=== PATIENT | female | born 1995 | race Caucasian/White ===

== ENCOUNTER → 2017-03-07 | Outpatient (REF) | payer OTHER ==
[~2017-03-07] MED LIST: /MOM400 PO; ACET50TA PO; ANUS2.5C2 EXT; DOCU10ELUD PO; IBUP600T26 PO; IBUP60TA PO; PREN1TAB11 PO; PRENTAB66 PO
[2017-03-07 18:31] LABS: MEAN CORPUSCULAR HEMOGLOBIN 30.4 pg (27.0-33.0); MEAN CORPUSCULAR HGB CONC 34.4 g/dl (32.0-36.5); MEAN CORPUSCULAR VOLUME 88.4 fl (80.0-96.0); PLATELET COUNT, AUTOMATED 291 10^3/uL (150-450); RED CELL DISTRIBUTION WIDTH 12.3 % (11.5-14.5); WHITE BLOOD COUNT 7.9 10^3/uL (4.0-10.0)
[2017-03-07 18:59] LABS: HCG, SERUM QUANTITATIVE 51118 MIU/ML
[2017-03-09 11:20] LABS: HBsAg Prenatal NEGATIVE (NEGATIVE)
== END ==
LOC: M LAB REF 16:47
PROVIDERS: ATTEND Obstetrics & Gynecology
DX: O36.80X0 Pregnancy with inconclusive fetal viability, not applicable or unspecified (principal); Z3A.00 Weeks of gestation of pregnancy not specified

== ENCOUNTER → 2017-07-13 | Outpatient (CLI) | payer OTHER ==
[2017-07-13 14:48] LABS: HEMATOCRIT 34.4 % (36.0-47.0); HEMOGLOBIN 11.6 g/dl (12.0-15.5); MEAN CORPUSCULAR HEMOGLOBIN 30.6 pg (27.0-33.0); MEAN CORPUSCULAR HGB CONC 33.7 g/dl (32.0-36.5); MEAN CORPUSCULAR VOLUME 90.8 fl (80.0-96.0); PLATELET COUNT, AUTOMATED 210 10^3/uL (150-450); RED BLOOD COUNT 3.79 10^6/uL (4.00-5.40)
[2017-07-13 15:07] LABS: GLUCOSE CHALLENGE TEST 1 HOUR 116 MG/DL (LESS THAN 140)
== END ==
LOC: M LAB 13:39
DX: Z34.82 Encounter for supervision of other normal pregnancy, second trimester (principal)
CPT/HCPCS: 82950

== ENCOUNTER → 2017-07-23 | Outpatient (REF) | payer OTHER ==
[2017-07-24 09:13] LABS: AB SCREEN (INDIRECT COOMBS)VIS 1 1
== END ==
LOC: M LAB REF 17:07
DX: Z34.82 Encounter for supervision of other normal pregnancy, second trimester (principal)
CPT/HCPCS: 86901

== ENCOUNTER → 2017-09-07 | Outpatient (REF) | payer OTHER | LOC: M LAB REF 13:06 | DX: Z34.83 Encounter for supervision of other normal pregnancy, third trimester (principal); Z3A.00 Weeks of gestation of pregnancy not specified ==

== ENCOUNTER 2017-09-27 15:42 | Inpatient (IN) | payer OTHER ==
[2017-09-27] MEDS ORDERED: LR 1,000 ML IV (16:39)
[2017-09-27] MEDS: LR 1,000 ML IV ×2 (16:42→17:42)
[2017-09-27] MEDS: LACTATED RINGER'S 1000 ML IV (16:42)
[2017-09-27 17:06] LABS: HEMATOCRIT 32.9 % (36.0-47.0); HEMOGLOBIN 11.3 g/dl (12.0-15.5); MEAN CORPUSCULAR HGB CONC 34.3 g/dl (32.0-36.5); MEAN CORPUSCULAR VOLUME 87.3 fl (80.0-96.0); PLATELET COUNT, AUTOMATED 230 10^3/uL (150-450); RED BLOOD COUNT 3.77 10^6/uL (4.00-5.40); RED CELL DISTRIBUTION WIDTH 12.8 % (11.5-14.5); WHITE BLOOD COUNT 10.3 10^3/uL (4.0-10.0)
[2017-09-27] MEDS: OXYTOCIN DRIP 30 UNITS in APPROPRIATE DILUENT 1 EA IV (18:08)
[2017-09-27] MEDS ORDERED: FENTANYL 2MCG/ML ROPIVACAINE 0.2% IN 0.9% NACL 200ML IVBAG As Ordered (20:20)
[2017-09-27] MEDS ORDERED: NALOXONE INJ 0.4 MG/1 ML VIAL (J2310) IV (20:28)
[2017-09-27] MEDS ORDERED: LACTATED RINGER'S 1000 ML IV (20:28)
[2017-09-27] MEDS ORDERED: ePHEDrine SULFATE 25 MG/5 ML(5MG/ML) SYRINGE IV (20:28)
[2017-09-27] MEDS ORDERED: REFRIGERATOR IV KEYS XX (20:28)
[2017-09-27] MEDS ORDERED: diphenhydrAMINE INJ 50MG/ML VIAL (J1200) IV (20:28)
[2017-09-27] MEDS ORDERED: ONDANSETRON 4MG/2ML VIAL (J2405) IV (20:28)
[2017-09-27] MEDS: FENTANYL/ROPIVACAINE/NACL BAG 200 ML EPIDURAL (20:28)
[2017-09-27] MEDS ORDERED: EPIDURAL/PCA KEYS XX (20:28)
[2017-09-27] MEDS ORDERED: EPIDURAL COMMENT XX (20:28)
[2017-09-27] MEDS: ACETAMINOPHEN 500 MG TAB PO (22:19)
[2017-09-28] MEDS ORDERED: OXYTOCIN DRIP 30 UNITS in APPROPRIATE DILUENT 1 EA IV (00:49)
[2017-09-28] MEDS ORDERED: DOCUSATE SODIUM 100 MG CAP PO (01:00)
[2017-09-28] MEDS ORDERED: METHYLERGONOVINE MALEATE 0.2 MG TAB PO (01:00)
[2017-09-28] MEDS ORDERED: MEASLES,MUMPS,RUBELLA VACCINE INJ (MMR-II) (90707) SC (01:00)
[2017-09-28] MEDS ORDERED: DIBUCAINE 1% OINTMENT 30GM TOP (01:00)
[2017-09-28] MEDS ORDERED: ACETAMINOPHEN 500 MG TAB PO (01:00)
[2017-09-28] MEDS: PRENATAL VITAMINS CHEWABLE TABLET PO (08:26)
[2017-09-28] MEDS: IBUPROFEN 800 MG TAB PO ×2 (08:26→14:52)
[2017-09-29 07:16] LABS: FETAL SCREEN PROF. 1 1
[2017-09-29] MEDS: PRENATAL VITAMINS CHEWABLE TABLET PO (07:39)
[2017-09-29] MEDS: IBUPROFEN 800 MG TAB PO (07:39)
[2017-09-29] MEDS: RHOGAM 300 MCG (1500 IU) INJ (J2790) IM (07:41)
== END 2017-09-29 11:20 | disposition home or self-care (01) | DRG 560 ==
LOC: M LDI 15:42 → M OBS 09-28 02:40
PROVIDERS: Obstetrics & Gynecology
PROC: 10E0XZZ Delivery of Products of Conception, External Approach (ICD-10-PCS; principal; 2017-09-28)
DX: O80 Encounter for full-term uncomplicated delivery (principal); Z37.0 Single live birth; Z3A.39 39 weeks gestation of pregnancy

== ENCOUNTER 2018-06-22 01:36 | Emergency (ER) | payer OTHER ==
[~2018-06-22] VITALS: Ht 149.9 cm; Wt 75.0 kg
[2018-06-22 01:36] VITALS: BP 146/76
[~2018-06-22 01:36] MED LIST changes: +IBUP-1114 PO; +MAPA500T2 PO; +PRENTAB9 PO
[2018-06-22] MEDS ORDERED: TRI-TAB16 (01:43)
[2018-06-23] MEDS ORDERED: IBUP200T45 PO (21:14)
[2018-06-23] MEDS ORDERED: ACET500T15 PO (21:14)
[2018-06-23] MEDS ORDERED: TRAM50TA2 PO (21:58)
[2018-06-23] MEDS ORDERED: PENI500T PO (21:58)
== END 2018-06-22 04:25 | disposition left against medical advice (07) ==
LOC: M ED 01:36
DX: Z53.29 Procedure and treatment not carried out because of patient's decision for other reasons (principal)

== ENCOUNTER 2018-06-23 21:06 | Emergency (ER) | payer OTHER ==
[~2018-06-23] VITALS: Ht 149.9 cm; Wt 79.2 kg
[~2018-06-23 21:06] MED LIST changes: -/MOM400 PO; -ACET50TA PO; -DOCU10ELUD PO; +DOCU5LIQ PO; +IBUP600T42 PO; -IBUP60TA PO; +MAPA500T17 PO; +MILK10SU PO; +TRI-TAB16
[2018-06-23 21:07] VITALS: BP 169/89
[2018-06-23] MEDS ORDERED: IBUP200T45 PO (21:14)
[2018-06-23] MEDS ORDERED: ACET500T15 PO (21:14)
[2018-06-23] MEDS ORDERED: PENI500T PO (21:58)
[2018-06-23] MEDS ORDERED: TRAM50TA2 PO (21:58)
[2018-06-23] MEDS ORDERED: PENICILLIN V POTASSIUM 500 MG TAB PO ONE (22:00)
== END 2018-06-23 22:23 | disposition home or self-care (01) ==
LOC: M ED 21:06
DX: K04.7 Periapical abscess without sinus (principal); K08.89 Other specified disorders of teeth and supporting structures; R22.0 Localized swelling, mass and lump, head; F17.210 Nicotine dependence, cigarettes, uncomplicated; Z88.1 Allergy status to other antibiotic agents; Z91.048 Other nonmedicinal substance allergy status; Z79.899 Other long term (current) drug therapy

== ENCOUNTER 2019-03-14 20:47 | Emergency (ER) | payer OTHER ==
[~2019-03-14 20:47] MED LIST changes: +ACET500T15 PO; +IBUP200T45 PO; +PENI500T PO; +TRAM50TA2 PO
[2019-03-14 20:50] VITALS: BP 148/87
== END 2019-03-14 22:03 | disposition home or self-care (01) ==
LOC: M ED 20:47
DX: Z60.9 Problem related to social environment, unspecified (principal); Z88.5 Allergy status to narcotic agent; Z88.1 Allergy status to other antibiotic agents; F17.218 Nicotine dependence, cigarettes, with other nicotine-induced disorders

== ENCOUNTER 2019-06-08 16:18 | Emergency (ER) | payer OTHER ==
[~2019-06-08] VITALS: Ht 149.9 cm; Wt 60.7 kg
[2019-06-08] MEDS ORDERED: EXPOSURE KIT-ADULT 7 DAY SUPPLY PO ONE (17:15)
[2019-06-08] MEDS ORDERED: LEVONORGESTREL 1.5MG TABLET PO ONE ×2 (17:15→18:30)
[2019-06-08] MEDS ORDERED: metroNIDAZOLE (FLAGYL) 500 MG TAB PO ONE (17:15)
[2019-06-08] MEDS ORDERED: GENTAMICIN SULF INJ 80MG/2ML VIAL (J1580) IM ONE (17:15)
[2019-06-08] MEDS ORDERED: AZITHROMYCIN 250 MG TAB PO ONE (17:15)
[2019-06-08] MEDS ORDERED: TRUVTAB PO (17:15)
[2019-06-08] MEDS ORDERED: RALT40TA PO (17:15)
[2019-06-08] MEDS ORDERED: TRUVADA 200MG/300MG TABLET PO ONE (17:30)
[2019-06-08] MEDS ORDERED: RALTEGRAVIR 400 MG TAB (ISENTRESS) PO ONE (17:30)
[2019-06-08 17:32] LABS: HEMATOCRIT 41.8 % (36.0-47.0); MEAN CORPUSCULAR HEMOGLOBIN 29.2 pg (27.0-33.0); MEAN CORPUSCULAR HGB CONC 33.5 g/dl (32.0-36.5); MEAN CORPUSCULAR VOLUME 87.1 fl (80.0-96.0); PLATELET COUNT, AUTOMATED 269 10^3/uL (150-450); WHITE BLOOD COUNT 6.5 10^3/uL (4.0-10.0)
[2019-06-08 17:44] LABS: HCG, SERUM QUALITATIVE NEGATIVE (NEGATIVE)
[2019-06-08 18:02] LABS: ALT/SGPT 16 U/L (12-78); BILIRUBIN,TOTAL 0.3 MG/DL (0.2-1.0); BLOOD UREA NITROGEN 22 MG/DL (7-18); CALCIUM LEVEL 9.1 MG/DL (8.5-10.1); CARBON DIOXIDE LEVEL 24 MEQ/L (21-32); CHLORIDE LEVEL 107 MEQ/L (98-107); CREATININE FOR GFR 0.69 MG/DL (0.55-1.30); GLOMERULAR FILTRATION RATE > 60.0 (>60); GLUCOSE, FASTING 61 MG/DL (70-100); POTASSIUM SERUM 3.6 MEQ/L (3.5-5.1); SODIUM LEVEL 139 MEQ/L (136-145); TOTAL PROTEIN 7.5 GM/DL (6.4-8.2)
[2019-06-08 18:13] LABS: ATYPICAL LYMPH 7 % (0-5); BASOPHILS 2 % (0-1); EOSINOPHILS 6 % (0-3); LYMPHOCYTES 39 % (16-44); MONOCYTES 9 % (0-5); NEUTROPHILS 35 % (28-66); PLATELET ESTIMATE NORMAL (NORMAL)
[2019-06-08 18:33] VITALS: BP 110/59
[2019-06-09] MEDS ORDERED: TRUVADA 200MG/300MG TABLET PO SCH
[2019-06-09] MEDS ORDERED: RALTEGRAVIR 400 MG TAB (ISENTRESS) PO SCH
[2019-06-09 09:28] LABS: HEPATITIS B SURFACE ANTIBODY NEGATIVE (POSITIVE)
[2019-06-09 09:39] LABS: HEPATITIS B SURFACE ANTIGEN NEGATIVE (NEGATIVE)
[2019-06-09 10:07] LABS: HEPATITIS C VIRUS ABY INDEX < 0.0 INDEX (<0.8)
[2019-06-09 10:08] LABS: HIV 1&2 SCREEN CENTAUR NEGATIVE (NEGATIVE)
== END 2019-06-08 18:35 | disposition home or self-care (01) ==
LOC: M ED 16:18
DX: T76.21XA Adult sexual abuse, suspected, initial encounter (principal); Z88.5 Allergy status to narcotic agent; Z91.048 Other nonmedicinal substance allergy status; Z79.899 Other long term (current) drug therapy
CPT/HCPCS: 36415; 80053; 84703; 85025; 86706; 86780; 86803; 87340; 87389; 96372; 99283; J1580

== ENCOUNTER → 2022-08-15 | Outpatient (CLI) | payer OTHER ==
[~2022-08-15] MED LIST changes: +EMTR1TAB16 PO; -IBUP200T45 PO; +IBUP200T46 PO; +RALT40TA PO; +holter monitor
[2022-08-15 13:57] LABS: HEMATOCRIT 38.2 % (36.0-47.0); HEMOGLOBIN 13.2 g/dl (12.0-15.5); MEAN CORPUSCULAR HEMOGLOBIN 30.6 pg (27.0-33.0); MEAN CORPUSCULAR HGB CONC 34.6 g/dl (32.0-36.5); MEAN CORPUSCULAR VOLUME 88.4 fl (80.0-96.0); PLATELET COUNT, AUTOMATED 292 10^3/uL (150-450); RED BLOOD COUNT 4.32 10^6/uL (4.00-5.40); WHITE BLOOD COUNT 10.2 10^3/uL (4.0-10.0)
[2022-08-15 14:57] LABS: GC DNA AMPLIFICATION NEGATIVE (NEGATIVE)
[2022-08-15 15:01] LABS: HEPATITIS C VIRUS ABY INDEX 0.1 INDEX (<0.8)
== END ==
LOC: M PLALAB 09:39
PROVIDERS: ATTEND Advanced Practice Midwife
DX: Z34.82 Encounter for supervision of other normal pregnancy, second trimester (principal)

== ENCOUNTER → 2022-10-25 | Outpatient (CLI) | payer OTHER | LOC: M WHC 13:04 | PROVIDERS: ATTEND Advanced Practice Midwife | DX: Z34.82 Encounter for supervision of other normal pregnancy, second trimester (principal); Z3A.25 25 weeks gestation of pregnancy ==

== ENCOUNTER → 2022-11-16 | Outpatient (CLI) | payer OTHER ==
[2022-11-16 16:32] LABS: HEMATOCRIT 38.3 % (36.0-47.0); HEMOGLOBIN 12.7 g/dl (12.0-15.5); MEAN CORPUSCULAR HEMOGLOBIN 30.5 pg (27.0-33.0); MEAN CORPUSCULAR HGB CONC 33.2 g/dl (32.0-36.5); MEAN CORPUSCULAR VOLUME 91.8 fl (80.0-96.0); PLATELET COUNT, AUTOMATED 305 10^3/uL (150-450); RED BLOOD COUNT 4.17 10^6/uL (4.00-5.40); WHITE BLOOD COUNT 9.5 10^3/uL (4.0-10.0)
[2022-11-16 18:52] LABS: GC DNA AMPLIFICATION NEGATIVE (NEGATIVE)
== END ==
LOC: M PLALAB 11:27
PROVIDERS: ATTEND Advanced Practice Midwife
DX: Z34.93 Encounter for supervision of normal pregnancy, unspecified, third trimester (principal); Z3A.00 Weeks of gestation of pregnancy not specified
CPT/HCPCS: 36415; 82950; 85027; 86850; 86900; 86901; 87810; 87850; J2790

== ENCOUNTER 2022-12-08 17:11 | Outpatient (CLI) | payer OTHER ==
[~2022-12-08] VITALS: Ht 149.9 cm; Wt 76.9 kg
[2022-12-08 17:22] VITALS: BP 122/69
[2022-12-08] MEDS ORDERED: TUMS500C PO (17:36)
[2022-12-08] MEDS ORDERED: HOME MED LIST COMPLETE! XX SCH (17:40)
[2022-12-08 19:07] LABS: HEMATOCRIT 36.6 % (36.0-47.0); HEMOGLOBIN 12.3 g/dl (12.0-15.5); MEAN CORPUSCULAR HEMOGLOBIN 30.5 pg (27.0-33.0); MEAN CORPUSCULAR HGB CONC 33.6 g/dl (32.0-36.5); MEAN CORPUSCULAR VOLUME 90.8 fl (80.0-96.0); PLATELET COUNT, AUTOMATED 295 10^3/uL (150-450); RED BLOOD COUNT 4.03 10^6/uL (4.00-5.40); WHITE BLOOD COUNT 10.5 10^3/uL (4.0-10.0)
[2022-12-08 19:21] LABS: INR 1.03; PROTHROMBIN TIME 13.2 SECONDS (12.5-14.5)
[2022-12-08 19:22] VITALS: BP 112/64
[2022-12-08 19:22] LABS: PARTIAL THROMBOPLASTIN TIME 28.9 SECONDS (24.8-34.2)
== END 2022-12-08 21:18 | disposition home or self-care (01) ==
LOC: M LDO 17:11
PROVIDERS: ATTEND Advanced Practice Midwife
DX: O36.8130 Decreased fetal movements, third trimester, not applicable or unspecified (principal); O26.893 Other specified pregnancy related conditions, third trimester; O99.343 Other mental disorders complicating pregnancy, third trimester; O99.333 Smoking (tobacco) complicating pregnancy, third trimester; F32.A Depression, unspecified; F17.210 Nicotine dependence, cigarettes, uncomplicated; M54.50 Low back pain, unspecified; Z3A.31 31 weeks gestation of pregnancy

== ENCOUNTER → 2023-01-23 | Outpatient (REF) | payer OTHER ==
[~2023-01-23] MED LIST changes: +TUMS500C PO
== END ==
LOC: M PLALAB 09:13
PROVIDERS: ATTEND Advanced Practice Midwife
DX: Z34.80 Encounter for supervision of other normal pregnancy, unspecified trimester (principal)

== ENCOUNTER 2023-01-29 10:15 | Outpatient (CLI) | payer OTHER ==
[~2023-01-29] VITALS: Ht 149.9 cm; Wt 79.7 kg
[2023-01-29 10:35] VITALS: BP 110/66
[2023-01-29] MEDS ORDERED: HOME MED LIST COMPLETE! XX SCH (10:40)
== END 2023-01-29 12:00 | disposition home or self-care (01) ==
LOC: M LDO 10:15
PROVIDERS: ATTEND Advanced Practice Midwife
DX: O47.1 False labor at or after 37 completed weeks of gestation (principal); O99.343 Other mental disorders complicating pregnancy, third trimester; F32.A Depression, unspecified; O99.333 Smoking (tobacco) complicating pregnancy, third trimester; F17.210 Nicotine dependence, cigarettes, uncomplicated; Z3A.38 38 weeks gestation of pregnancy
CPT/HCPCS: 59025; G0463

== ENCOUNTER 2023-02-03 09:32 | Inpatient (IN) | payer OTHER ==
[~2023-02-03] VITALS: Ht 149.9 cm; Wt 79.3 kg
[2023-02-03] VITALS (46 sets, daily range): BP systolic 105–156; BP diastolic 51–99; O2SAT 97–100
[2023-02-03] MEDS ORDERED: ACET325C5 PO (09:50)
[2023-02-03] MEDS ORDERED: PREN1CHW4 PO (09:50)
[2023-02-03] MEDS ORDERED: HOME MED LIST COMPLETE! XX SCH (09:55)
[2023-02-03] MEDS ORDERED: PENICILLIN G POTASSIUM 5 MU IV 5 MU in D5W MINI-BAG PLUS 100 ML IV STA (13:28)
[2023-02-03] MEDS ORDERED: TRANEXAMIC ACID INJection 1,000 MG in NS 100 ML IV PRN (13:30)
[2023-02-03] MEDS ORDERED: OXYTOCIN DRIP 30 UNITS in IV 1 EA IV PRN (13:30)
[2023-02-03] MEDS ORDERED: OXYTOCIN DRIP 30 UNITS in IV 1 EA IV SCH ×2 (13:30→20:40)
[2023-02-03] MEDS ORDERED: LIDOCAINE 1% MDV 20ML VIAL INFIL PRN (13:30)
[2023-02-03] MEDS ORDERED: METHYLERGONOVINE MALEATE 0.2MG/ML 1ML VIAL IM PRN (13:30)
[2023-02-03 13:31] LABS: HEMOGLOBIN 13.2 g/dl (12.0-15.5); MEAN CORPUSCULAR HEMOGLOBIN 30.5 pg (27.0-33.0); MEAN CORPUSCULAR HGB CONC 34.7 g/dl (32.0-36.5); MEAN CORPUSCULAR VOLUME 87.8 fl (80.0-96.0); PLATELET COUNT, AUTOMATED 302 10^3/uL (150-450); RED BLOOD COUNT 4.33 10^6/uL (4.00-5.40); WHITE BLOOD COUNT 11.5 10^3/uL (4.0-10.0)
[2023-02-03] MEDS: LR 1,000 ML IV SCH ×2 (13:51→16:07)
[2023-02-03 14:27] LABS: HIV 1&2 SCREEN NEGATIVE (NEGATIVE)
[2023-02-03] MEDS ORDERED: NALOXONE INJ 0.4MG/1ML VIAL IV PRN (16:20)
[2023-02-03] MEDS ORDERED: FENTANYL 2MCG/ML ROPIVACAINE 0.2% IN 0.9% NACL 100ML IVBAG As Ordered ONE (16:20)
[2023-02-03] MEDS ORDERED: ePHEDrine SULFATE 25 MG/5 ML(5MG/ML) SYRINGE IVP PRN (16:20)
[2023-02-03] MEDS ORDERED: EPIDURAL/PCA KEYS XX PRN (16:20)
[2023-02-03] MEDS ORDERED: LR 500 ML IV PRN (16:20)
[2023-02-03] MEDS ORDERED: diphenhydrAMINE 50MG/ML VIAL IV PRN (16:20)
[2023-02-03] MEDS ORDERED: ONDANSETRON 4MG 2ML VIAL IV PRN (16:20)
[2023-02-03] MEDS ORDERED: FENTANYL/ROPIVACAINE/NACL BAG 100 ML EPIDURAL SCH (16:20)
[2023-02-03] MEDS ORDERED: PEN G POT 3,000,000 UNIT/50 ML 3,000,000 UNIT in IV 1 EA IV SCH (18:00)
[2023-02-03] MEDS ORDERED: IBUPROFEN 800 MG TAB PO PRN (20:40)
[2023-02-03] MEDS ORDERED: ACETAMINOPHEN TAB 650MG DOSE (2X325MG) PO PRN (20:40)
[2023-02-03] MEDS ORDERED: DOCUSATE SODIUM 100MG CAPSULE PO PRN (20:40)
[2023-02-03] MEDS ORDERED: IBUPROFEN 600MG TAB PO PRN (20:40)
[2023-02-03] MEDS ORDERED: DIBUCAINE 1% OINTMENT 30GM TOP PRN (20:40)
[2023-02-03] MEDS ORDERED: RHOGAM 300MCG (1500IU) INJ IM SCH (20:40)
[2023-02-03] MEDS ORDERED: METHYLERGONOVINE MALEATE 0.2 MG TAB PO PRN (20:40)
[2023-02-03] MEDS ORDERED: ANUSOL HC CREAM 30GM TOP PRN (20:40)
[2023-02-03] MEDS ORDERED: MOM 30ML SUSPENSION UDC PO PRN (20:40)
[2023-02-04 05:52] VITALS: BP 127/80; O2SAT 97
[2023-02-04] MEDS: PRENATAL VITAMINS CHEWABLE TABLET PO SCH (11:39)
[2023-02-04] MEDS: ACETAMINOPHEN 500 MG TAB PO PRN ×2 (11:40→19:48)
[2023-02-04 18:00] VITALS: BP 141/83; O2SAT 98
[2023-02-04 20:00] VITALS: BP_SYST 128; BP_SYST 141; BP_DIAS 83; BP_DIAS 86; TEMP 96.8; O2SAT 98
[2023-02-05 05:20] VITALS: BP 122/75; O2SAT 98
[2023-02-05] MEDS: PRENATAL VITAMINS CHEWABLE TABLET PO SCH (08:21)
[2023-02-05] MEDS ORDERED: MEASLES,MUMPS,RUBELLA VACCINE INJ (MMR-II) SC.IMMUN ONE (09:00)
[2023-02-05] MEDS ORDERED: ACET-683 PO (11:59)
[2023-02-05] MEDS ORDERED: IBUP80TA PO (11:59)
== END 2023-02-05 13:30 | disposition home or self-care (01) | DRG 560 ==
LOC: M LDO 09:32 → M LDI 12:30 → M OBS 22:05
PROVIDERS: ADMIT Obstetrics & Gynecology; ATTEND Obstetrics & Gynecology
PROC: 10E0XZZ Delivery of Products of Conception, External Approach (ICD-10-PCS; principal; 2023-02-03)
DX: O99.324 Drug use complicating childbirth (principal); Z37.0 Single live birth; Z3A.39 39 weeks gestation of pregnancy; Z88.8 Allergy status to other drugs, medicaments and biological substances; Z88.5 Allergy status to narcotic agent; F12.90 Cannabis use, unspecified, uncomplicated; O99.824 Streptococcus B carrier state complicating childbirth

== ENCOUNTER 2023-04-25 06:54 | Day surgery (SDC) | payer MEDICAID, OTHER, SELFPAY ==
[~2023-04-25] VITALS: Ht 152.4 cm; Wt 76.3 kg
[~2023-04-25 06:54] MED LIST changes: +ACET-683 PO; +ACET325C5 PO; +FLUO20CA22 PO; +FLUO40CA PO; +IBUP80TA PO; +PREN1CHW4 PO
[2023-04-25] MEDS ORDERED: LR 1,000 ML IV SCH ×2 (07:05→10:25)
[2023-04-25] MEDS ORDERED: fentaNYL 100 MCG/2 ML INJECTION As Ordered ONE ×2 (07:15→09:17)
[2023-04-25] MEDS ORDERED: LIDOCAINE 2% 100MG/5ML SDV (FOR ANES.) As Ordered ONE (07:15)
[2023-04-25] MEDS ORDERED: MIDAZOLAM INJ 2MG/2ML VIAL As Ordered ONE (07:15)
[2023-04-25] MEDS ORDERED: ROCURONIUM BROMIDE 50MG/5ML VIAL As Ordered ONE ×2 (07:16→09:54)
[2023-04-25] MEDS ORDERED: ONDANSETRON 4MG 2ML VIAL As Ordered ONE (07:16)
[2023-04-25] MEDS ORDERED: propofoL 200 MG/20 ML VIAL As Ordered ONE ×2 (07:17→10:40)
[2023-04-25] MEDS ORDERED: GLYCOPYRROLATE INJ 0.2 MG/ML 2 ML VIAL As Ordered ONE (09:03)
[2023-04-25 09:20] LABS: HEMATOCRIT 40.7 % (36.0-47.0); HEMOGLOBIN 13.4 g/dl (12.0-15.5); MEAN CORPUSCULAR HGB CONC 32.9 g/dl (32.0-36.5); MEAN CORPUSCULAR VOLUME 88.1 fl (80.0-96.0); PLATELET COUNT, AUTOMATED 300 10^3/uL (150-450); RED BLOOD COUNT 4.62 10^6/uL (4.00-5.40); WHITE BLOOD COUNT 8.3 10^3/uL (4.0-10.0)
[2023-04-25] MEDS ORDERED: ACETAMINOPHEN 1000MG 100ML IV BAG As Ordered ONE (09:24)
[2023-04-25] MEDS ORDERED: PHENYLephrine 500MCG 5ML (100MCG/ML) SYRINGE As Ordered ONE (09:30)
[2023-04-25] MEDS ORDERED: SUGAMMADEX SODIUM 500 MG/5 ML VIAL (BRIDION) As Ordered ONE (09:52)
[2023-04-25] MEDS ORDERED: METOCLOPRAMIDE INJ 10MG/2ML VIAL IV PRN ×2 (10:25→10:35)
[2023-04-25] MEDS ORDERED: oxyCODONE 5MG TAB PO PRN (10:25)
[2023-04-25] MEDS ORDERED: fentaNYL 100 MCG/2 ML INJECTION IV PRN (10:25)
[2023-04-25] MEDS ORDERED: ONDANSETRON 4MG 2ML VIAL IV PRN ×2 (10:25→10:35)
[2023-04-25] MEDS ORDERED: ACETAMINOPHEN 500 MG TAB PO PRN (10:35)
[2023-04-25] MEDS ORDERED: IBUPROFEN 600MG TAB PO PRN (10:35)
[2023-04-25 11:45] VITALS: BP 118/78; TEMP 98.4; O2SAT 97
== END 2023-04-25 11:50 | disposition home or self-care (01) ==
LOC: M SDC 06:54
PROVIDERS: ATTEND Obstetrics & Gynecology
DX: Z30.2 Encounter for sterilization (principal); F41.9 Anxiety disorder, unspecified; F32.A Depression, unspecified; F43.10 Post-traumatic stress disorder, unspecified; Z79.899 Other long term (current) drug therapy; F12.10 Cannabis abuse, uncomplicated; F17.218 Nicotine dependence, cigarettes, with other nicotine-induced disorders; Z88.5 Allergy status to narcotic agent; Z88.1 Allergy status to other antibiotic agents
CPT/HCPCS: 36415; 58661; 81025; 85027; 86850; 86900; 86901; 88302; J0131; J0665; J1100; J2250; J2371; J2405; J3010

== ENCOUNTER 2024-01-18 12:26 | Emergency (ER) | payer OTHER ==
[~2024-01-18] VITALS: Ht 149.9 cm; Wt 90.9 kg
[~2024-01-18 12:26] MED LIST changes: +FLUO-365 PO; -FLUO20CA22 PO
[2024-01-18] MEDS ORDERED: CLON-412 (12:37)
[2024-01-18] MEDS ORDERED: LUMA21CA (12:37)
[2024-01-18] MEDS ORDERED: IBUP80TA (12:37)
[2024-01-18] MEDS ORDERED: METH-1164 PO (19:11)
[2024-01-18 19:21] VITALS: BP 130/61; TEMP 98; O2SAT 98
== END 2024-01-18 19:25 | disposition home or self-care (01) ==
LOC: M ED 12:26
DX: M62.830 Muscle spasm of back (principal); F41.0 Panic disorder [episodic paroxysmal anxiety]; R51.9 Headache, unspecified; Z88.1 Allergy status to other antibiotic agents; Z88.5 Allergy status to narcotic agent; Z91.048 Other nonmedicinal substance allergy status; Z79.1 Long term (current) use of non-steroidal anti-inflammatories (NSAID); Z79.899 Other long term (current) drug therapy

== ENCOUNTER 2024-02-03 15:54 | Emergency (ER) | payer OTHER ==
[~2024-02-03] VITALS: Ht 149.9 cm; Wt 93.2 kg
[~2024-02-03 15:54] MED LIST changes: +BAYE81TA10 PO; +CLON-412 PO; +IBUP80TA; +LUMA21CA PO; +METH-1164 PO
[2024-02-03] MEDS ORDERED: MIDOTAB PO (16:16)
[2024-02-03] MEDS: KETOROLAC 30 MG/ML 1ML VIAL IM ONE (16:55)
[2024-02-03] MEDS ORDERED: ACETAMINOPHEN 500 MG TAB PO ONE (17:10)
[2024-02-03] MEDS: ONDANSETRON 4MG ORAL DISINTEGRATING TAB PO ONE (17:17)
[2024-02-03] MEDS: PERCOCET 5MG/325MG TAB PO ONE (17:51)
[2024-02-03] MEDS: ACETAMINOPHEN 325 MG TAB PO ONE (17:51)
[2024-02-03] MEDS ORDERED: KETO10TAB PO (18:19)
[2024-02-03] MEDS ORDERED: ONDA-282 PO (18:19)
[2024-02-03] MEDS: ONDANSETRON 4MG ORAL DISINTEGRATING TAB PO PRN (18:58)
[2024-02-03] MEDS: KETOROLAC TROMETHAMINE 10 MG TAB PO ONE (18:58)
[2024-02-03 19:06] VITALS: BP 139/90; TEMP 99.1; O2SAT 95
== END 2024-02-03 19:08 | disposition home or self-care (01) ==
LOC: M ED 15:54
DX: K08.89 Other specified disorders of teeth and supporting structures (principal); K03.81 Cracked tooth; F41.9 Anxiety disorder, unspecified; F32.A Depression, unspecified; F12.10 Cannabis abuse, uncomplicated; Z87.891 Personal history of nicotine dependence; Z88.1 Allergy status to other antibiotic agents; Z88.5 Allergy status to narcotic agent; Z91.048 Other nonmedicinal substance allergy status; Z79.82 Long term (current) use of aspirin; Z79.1 Long term (current) use of non-steroidal anti-inflammatories (NSAID); Z79.83 Long term (current) use of bisphosphonates; Z79.899 Other long term (current) drug therapy
CPT/HCPCS: 96372; 99283; J1885

== ENCOUNTER 2024-02-04 09:53 | Day surgery (SDC) | payer OTHER ==
[~2024-02-04] VITALS: Ht 149.9 cm; Wt 97.4 kg
[~2024-02-04 09:53] MED LIST changes: +KETO10TAB PO; +MIDOTAB PO; +ONDA-282 PO
[2024-02-04] MEDS ORDERED: NS 1,000 ML IV SCH ×2 (10:35→12:55)
[2024-02-04] MEDS: KETOROLAC 30 MG/ML 1ML VIAL IV ONE (10:58)
[2024-02-04] MEDS ORDERED: fentaNYL 250 MCG/5 ML INJECTION As Ordered ONE (11:45)
[2024-02-04] MEDS ORDERED: MIDAZOLAM INJ 2MG/2ML VIAL As Ordered ONE (11:45)
[2024-02-04] MEDS ORDERED: ROCURONIUM BROMIDE 50MG/5ML VIAL As Ordered ONE (11:46)
[2024-02-04] MEDS ORDERED: propofoL 200 MG/20 ML VIAL As Ordered ONE (11:46)
[2024-02-04] MEDS ORDERED: ACETAMINOPHEN 1000MG 100ML IV BAG As Ordered ONE (11:46)
[2024-02-04] MEDS ORDERED: LIDOCAINE 2% 100MG/5ML SDV (FOR ANES.) As Ordered ONE (11:46)
[2024-02-04] MEDS ORDERED: ONDANSETRON 4MG 2ML VIAL As Ordered ONE (11:46)
[2024-02-04] MEDS ORDERED: SUGAMMADEX SODIUM 500 MG/5 ML VIAL (BRIDION) As Ordered ONE (11:46)
[2024-02-04] MEDS ORDERED: KETOROLAC 60MG 2ML VIAL As Ordered ONE (11:46)
[2024-02-04] MEDS: AMPICILLIN SOD/SULBACTAM SOD 3 GM in SODIUM CHLORIDE 0.9% 100ML ADD 100 ML IV ONE (12:24)
[2024-02-04] MEDS: LIDOCAINE 2% W/ EPINEPHRINE 1.7 ML DENTAL INJ As Ordered ONE (12:45)
[2024-02-04] MEDS ORDERED: ONDANSETRON 4MG 2ML VIAL IV PRN (12:55)
[2024-02-04] MEDS ORDERED: HYDROMORPHONE HCL 0.5 MG/ 0.5 ML SYRINGE IV PRN (12:55)
[2024-02-04] MEDS ORDERED: oxyCODONE 5MG TAB PO PRN (12:55)
[2024-02-04] MEDS ORDERED: fentaNYL 100 MCG/2 ML INJECTION IV PRN (12:55)
[2024-02-04 14:20] VITALS: BP 129/77; TEMP 98.8; O2SAT 98
== END 2024-02-04 14:27 | disposition home or self-care (01) ==
LOC: M SDC 09:53
PROVIDERS: ATTEND Dentist
DX: K02.9 Dental caries, unspecified (principal); K21.9 Gastro-esophageal reflux disease without esophagitis; F41.9 Anxiety disorder, unspecified; F32.A Depression, unspecified; Z79.82 Long term (current) use of aspirin; Z79.899 Other long term (current) drug therapy; Z88.5 Allergy status to narcotic agent; Z88.1 Allergy status to other antibiotic agents; Z87.891 Personal history of nicotine dependence; F12.10 Cannabis abuse, uncomplicated
CPT/HCPCS: 88300; D7140; D7210; D9223; J0131; J0295; J1100; J1885; J2250; J2405; J3010

== ENCOUNTER → 2024-04-30 | Outpatient (CLI) | payer OTHER | LOC: M WHC 08:53 | PROVIDERS: ATTEND Nurse Practitioner Family | DX: N63.20 Unspecified lump in the left breast, unspecified quadrant (principal); N63.10 Unspecified lump in the right breast, unspecified quadrant ==